=== PATIENT | female | born 1990 | race Caucasian/White ===

== ENCOUNTER 2016-08-23 18:23 | Emergency (ER) | payer OTHER ==
[2016-08-23 18:44] VITALS: RESP 18; TEMP 98.6
[2016-08-23] MEDS ORDERED: ORPHENADRINE 30 MG/ML 2 ML VIAL IM STA (18:49)
[2016-08-23] MEDS ORDERED: KETOROLAC 60 MG/2 ML VIAL IM STA (18:49)
--- NOTE | 2016-08-23 18:53 | ED ---
General Adult HPI - General Chief complaint: Back Pain/Injury Stated complaint: back pain Time Seen by Provider: 08/23/16 18:40 Source: patient, RN notes reviewed Mode of arrival: ambulatory Limitations: no limitations - History of Present Illness Initial comments: 26-year-old female presents emergency department chief complaint of low back pain. Patient has had this low back pain for the past 6 days. Patient states that his back whenever she stands or moves it causes increased pain. Patient denies a loss by bladder function he fell. Patient states it just hurts every time she tries to move. Patient states if she sits still the pain is better. Patient states that it radiates down her right leg. Patient states that she was concerned due to her symptoms so she thought that she should be evaluated. 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 Patient denies any recent fever, chills, shortness of breath, chest pain, abdominal pain , nausea vomiting, numbness or tingling, dysuria or hematuria, constipation or diarrhea, headaches or visual changes, or any other current symptoms. - Related Data Home Medications Medication Instructions Recorded Confirmed Pnv,Calcium 72/Iron/Folic Acid 1 each PO DAILY 03/12/15 03/12/15 [ Plus Tablet] lamoTRIgine [LaMICtal] 100 mg PO BID 08/23/16 08/23/16 Previous Rx's Medication Instructions Recorded Ibuprofen [Motrin] 600 mg PO Q6HR PRN #20 tab 08/23/16 Orphenadrine [Norflex] 100 mg PO Q12H #10 tablet.er 08/23/16 predniSONE 50 mg PO DAILY #5 tab 08/23/16 Allergies Allergy/AdvReac Type Severity Reaction Status Date / Time No Known Allergies Allergy Verified 08/23/16 18:44 Review of Systems ROS Statement: Those systems with pertinent positive or pertinent negative responses have been documented in the HPI. ROS Other: All systems not noted in ROS Statement are negative. Past Medical History Additional Past Medical History / Comment(s): back pain History of Any Multi-Drug Resistant Organisms: None Reported Past Surgical History: No Surgical Hx Reported Past Psychological History: Anxiety, Bipolar, Depression Smoking Status: Former smoker Past Alcohol Use History: Occasional Past Drug Use History: None Reported General Exam Limitations: no limitations General appearance: alert, in no apparent distress Head exam: Present: atraumatic, normocephalic, normal inspection Eye exam: Present: normal appearance, PERRL, EOMI. Absent: scleral icterus, conjunctival injection, periorbital swelling Respiratory exam: Present: normal lung sounds bilaterally. Absent: respiratory distress, wheezes, rales, rhonchi, stridor Cardiovascular Exam: Present: regular rate, normal rhythm, normal heart sounds. Absent: systolic murmur, diastolic murmur, rubs, gallop, clicks Extremities exam: Present: normal inspection, full ROM, normal capillary refill. Absent: tenderness, pedal edema, joint swelling, calf tenderness Back exam: Present: normal inspection, full ROM, tenderness (In the lower lumbar spine over the vertebrae) Neurological exam: Present: alert, oriented X3 Psychiatric exam: Present: normal affect, normal mood Skin exam: Present: warm, dry, intact, normal color. Absent: rash Course Vital Signs 08/23/16 18:39 Temperature 98.6 F Pulse Rate 90 Respiratory 18 Rate Blood Pressure 139/57 O2 Sat by Pulse 98 Oximetry Medical Decision Making - Medical Decision Making 26-year-old female presents for back pain that radiates on the right leg. This tenderness suspicion for sciatica. This was a patient steroids muscle relaxers and anti-inflammatories for home. We did give her a work note we discussed close follow-up with her doctor and all patient's questions. She stated that she understood and agreed to this and will be discharged home. - Radiology Data Radiology results: report reviewed, image reviewed Disposition Clinical Impression: Strain of lumbar region, Sciatica, right side Disposition: HOME SELF-CARE Condition: Stable Instructions: Low Back Strain (ED), Lower Back Exercises (ED) Additional Instructions: Please use medication as discussed. Please follow up with family doctor if symptoms have not improved over the next two days. Please return to the emergency room if your symptoms increase or worsen or for any other concerns. Prescriptions: Ibuprofen [Motrin] 600 mg PO Q6HR PRN #20 tab PRN Reason: Pain Orphenadrine [Norflex] 100 mg PO Q12H #10 tablet.er predniSONE 50 mg PO DAILY #5 tab Referrals: Raul Pope DO [Primary Care Provider] - 1-2 days Time of Disposition: 20:23
--- NOTE | 2016-08-23 20:21 | XR ---
EXAMINATION TYPE: XR lumbar spine 3V DATE OF EXAM: 08/23/2016 COMPARISON: NONE HISTORY: Lower back pain with radiation down right lower extremity TECHNIQUE: 3 views FINDINGS: There is no malalignment. No degenerative changes. No focal bony or soft tissue findings. IMPRESSION: Negative examination.
[2016-08-23 20:49] VITALS: BP 109/55; PULSE 78
== END 2016-08-23 20:48 | disposition home or self-care (01) ==
LOC: EC 18:23
DX: S39.012A Strain of muscle, fascia and tendon of lower back, initial encounter (principal); M54.41 Lumbago with sciatica, right side; F31.9 Bipolar disorder, unspecified; Z79.899 Other long term (current) drug therapy; Z87.891 Personal history of nicotine dependence; X58.XXXA Exposure to other specified factors, initial encounter
CPT/HCPCS: 99283; 96372 ×2; 72100; J2360; J1885

== ENCOUNTER 2018-08-13 20:19 | Emergency (ER) | payer BC, OTHER ==
[2018-08-13 21:04] VITALS: BP 115/72; PULSE 80; RESP 16; TEMP 98.4
[2018-08-13] MEDS ORDERED: KETOROLAC 60 MG/2 ML VIAL IM STA (21:16)
--- NOTE | 2018-08-13 21:24 | ED ---
Back Pain HPI - General Chief Complaint: Back Pain/Injury Stated Complaint: Pitched nerve in back Time Seen by Provider: 08/13/18 21:08 Source: patient Limitations: no limitations - History of Present Illness Initial Comments: Patient is a 28-year-old female presents to ER with complaints of low back pain 3 days. Patient denies any sort of injury or falls. Patient states she has a history of low back pain and had this similar thing happen a few years ago. Patient states she has pain when standing up from a seated position or when trying to stand up straight. Patient states she has pain that shoots down into her right buttocks into her leg at times. Patient states she has had lumbar x- rays in the past that showed no acute fractures or dislocations. Patient states he is trying to end with orthopedic at this time. Patient denies any fever, chills, nausea, vomiting loss of bowel or bladder control. - Related Data Home Medications Medication Instructions Recorded Confirmed Pnv,Calcium 72/Iron/Folic Acid 1 each PO DAILY 03/12/15 03/12/15 [ Plus Tablet] lamoTRIgine [LaMICtal] 100 mg PO BID 08/23/16 08/23/16 Previous Rx's Medication Instructions Recorded Ibuprofen [Motrin] 600 mg PO Q6HR PRN #20 tab 08/23/16 Orphenadrine [Norflex] 100 mg PO Q12H #10 tablet.er 08/23/16 predniSONE 50 mg PO DAILY #5 tab 08/23/16 Cyclobenzaprine [Flexeril] 5 mg PO BID PRN #10 tablet 08/13/18 predniSONE 10 mg PO BID 5 Days #10 tab 08/13/18 Allergies Allergy/AdvReac Type Severity Reaction Status Date / Time No Known Allergies Allergy Verified 08/13/18 21:05 Review of Systems ROS Statement: Those systems with pertinent positive or pertinent negative responses have been documented in the HPI. ROS Other: All systems not noted in ROS Statement are negative. Past Medical History Additional Past Medical History / Comment(s): back pain History of Any Multi-Drug Resistant Organisms: None Reported Past Surgical History: No Surgical Hx Reported Past Psychological History: Anxiety, Bipolar, Depression Smoking Status: Former smoker Past Alcohol Use History: Occasional Past Drug Use History: None Reported General Exam - General Exam Comments Initial Comments: GENERAL: Well-appearing, well-nourished and in no acute distress. HEAD: Atraumatic, normocephalic. EYES: Pupils equal round and reactive to light, extraocular movements intact, sclera anicteric, conjunctiva are normal. ENT: TMs normal, nares patent, oropharynx clear without exudates. Moist mucous membranes. NECK: Normal range of motion, supple without lymphadenopathy or JVD. LUNGS: Breath sounds clear to auscultation bilaterally and equal. No wheezes rales or rhonchi. HEART: Regular rate and rhythm without murmurs, rubs or gallops. ABDOMEN: Soft, nontender, normoactive bowel sounds. No guarding, no rebound. No masses appreciated. : Deferred EXTREMITIES: Normal range of motion, no pitting or edema. No clubbing or cyanosis. Patient has pain with tenderness of the lumbar paraspinals and right SI joint area. NEUROLOGICAL: Cranial nerves II through XII grossly intact. Normal speech, normal gait. PSYCH: Normal mood, normal affect. SKIN: Warm, Dry, normal turgor, no rashes or lesions noted. Limitations: no limitations Back exam: Present: normal inspection, tenderness (Lumbar area, right paraspinals, right SI joint area), muscle spasm, paraspinal tenderness. Absent: full ROM (Pain with extension and in going from flexion to extension.) Course Vital Signs 08/13/18 08/13/18 21:02 21:43 Temperature 98.4 F 98.4 F Pulse Rate 80 80 Respiratory 16 16 Rate Blood Pressure 115/72 115/72 O2 Sat by Pulse 97 97 Oximetry Medical Decision Making - Medical Decision Making Patient is a 28-year-old female with complaints of low back pain 3 days. Patient states she has similar thing happen a few years ago. Patient denies any injuries or falls this time. Patient's vital signs are stable. On exam patient has tenderness of the lumbar paraspinals and SI joint area, with radiation into the right buttocks. Patient has pain when going from sitting to standing and also from trunk flexion to extension. Patient denies any fever, chills, loss of bowel or bladder control. Patient was given a shot of Toradol in the ER won't be sent home with a few days of a muscle relaxer and a short course of steroids to help with inflammation. Patient will follow up with PCP if symptoms do not improve in 3 to 5 days. Patient is okay with this plan. Patient will be discharged. Case discussed with Dr. Epperson. Disposition Clinical Impression: Low back pain Disposition: HOME SELF-CARE Condition: Stable Instructions (If sedation given, give patient instructions): Acute Low Back Pain (ED) Additional Instructions: Please return to the Emergency Department if symptoms worsen or any other concerns. Follow up with PCP in 3-5 days as symptoms do not improve. Prescriptions: Cyclobenzaprine [Flexeril] 5 mg PO BID PRN #10 tablet PRN Reason: Muscle Spasm predniSONE 10 mg PO BID 5 Days #10 tab Is patient prescribed a controlled substance at d/c from ED?: No Referrals: Nonstaff,Physician [REFERRING] - 1-2 days
== END 2018-08-13 21:48 | disposition home or self-care (01) ==
LOC: EC 20:19
DX: M54.5 Low back pain (principal); Z87.891 Personal history of nicotine dependence; Z79.899 Other long term (current) drug therapy
CPT/HCPCS: 99283; 96372; J1885